=== PATIENT | female | born 1985 | race Caucasian/White ===

== ENCOUNTER 2018-05-14 14:48 | Emergency (ER) | payer MEDICAID, OTHER ==
[2018-05-14] MEDS ORDERED: BENZONATATE 100 MG CAPSULE PO STA (15:25)
[2018-05-14] MEDS ORDERED: IBUPROFEN 800 MG TABLET PO STA (15:25)
[2018-05-14] MEDS ORDERED: ALBUTEROL NEB 2.5 MG/3 ML INH STA (15:25)
--- NOTE | 2018-05-14 15:48 | ED Physician Documentation ---
PD HPI URI - Stated complaint Stated Complaint: COUGH/FEVER - Chief complaint Chief Complaint: Resp - History obtained from History obtained from: Patient - History of Present Illness Timing - onset: How many days ago (3) Timing duration: Days (3) Timing details: Gradual onset Pain level max: 4 Pain level now: 3 Associated symptoms: Fever, Chills, Nasal congestion, Rhinorrhea, Dry cough, Dyspnea Contributing factors: Sick contact, COPD / asthma (has used inhalers in the past). No: Immunocompromised, Unimmunized Improves by: Rest Worsened by: Activity, Breathing Similar symptoms before: Has not had sx before Recently seen: Not recently seen Review of Systems Constitutional: reports: Fever, Chills Nose: reports: Rhinorrhea / runny nose, Congestion Respiratory: reports: Dyspnea, Cough GI: denies: Vomiting, Diarrhea Skin: denies: Rash Musculoskeletal: denies: Neck pain, Back pain Neurologic: denies: Headache PD PAST MEDICAL HISTORY - Past Medical History Past Medical History: Yes Psych: Anxiety - Past Surgical History Past Surgical History: No /[employer]: section - Present Medications Home Medications: Ambulatory Orders Medication Instructions Recorded Confirmed Cyclobenzaprine [Flexeril] 10 mg PO TID PRN #20 tablet 11/24/12 12/10/14 Lorazepam [Ativan] 1 mg PO TID PRN #10 tablet 12/10/14 Albuterol Sulf [Ventolin Hfa 1 - 2 puffs INH Q4HR PRN #1 inhaler 05/14/18 Inhaler] Benzonatate [Tessalon Perle] 100 - 200 mg PO TID PRN #30 capsule 05/14/18 - Allergies Allergies/Adverse Reactions: Allergies Allergy/AdvReac Type Severity Reaction Status Date / Time latex Allergy Intermediate Rash Verified 05/14/18 14:54 - Social History Does the pt smoke?: No Smoking Status: Never smoker Does the pt drink ETOH?: No Does the pt have substance abuse?: No - Immunizations Immunizations are current?: Yes PD ED PE NORMAL - Vitals Vital signs reviewed: Yes - General General: Alert and oriented X 3 - HEENT HEENT: Ears normal, Moist mucous membranes, Pharynx benign - Neck Neck: Supple, no meningeal sign, No adenopathy - Cardiac Cardiac: RRR - Respiratory Respiratory: No respiratory distress, Other (wheezing, LLL) - Abdomen Abdomen: Soft, Non tender, Non distended - Derm Derm: Warm and dry - Neuro Neuro: Alert and oriented X 3 Results - Vitals Vitals: Vital Signs - 24 hr 05/14/18 05/14/18 14:53 15:46 Temperature 37.8 C H Heart Rate 122 H 110 H Respiratory 12 16 Rate Blood Pressure 138/75 H O2 Saturation 96 Oxygen O2 Source Room air - Labs Labs: Laboratory Tests 05/14/18 16:00 Influenza A (Rapid) Negative Influenza B (Rapid) Negative - Rads (name of study) cxr Radiology: Prelim report reviewed, EMP read contemporaneously, See rad report (no acute disease) PD MEDICAL DECISION MAKING - ED course Complexity details: reviewed results, re-evaluated patient, considered di fferential, d/w patient ED course: 33-year-old female with what appears to be a viral upper respiratory infection. Feels better after nebulizer treatment. Will prescribe an inhaler for home. Breathing is easier. Chest x-ray is negative. Influenza swab is negative. Patient counseled regarding signs and symptoms for which I believe and urgent re-evaluation would be necessary. Patient with good understanding of and agreement to plan and is comfortable going home at this time This document was made in part using voice recognition software. While efforts are made to proofread this document, sound alike and grammatical errors may occur. Departure - Departure Disposition: 01 Home, Self Care Clinical Impression: Viral URI with cough Condition: Good Instructions: ED Viral Syndrome Follow-Up: Hollie Welsh ARNP [Primary Care Provider] - Within 1 week Prescriptions: Albuterol Sulf [Ventolin Hfa Inhaler] 1 - 2 puffs INH Q4HR PRN #1 inhaler PRN Reason: Shortness Of Air/Wheezing Benzonatate [Tessalon Perle] 100 - 200 mg PO TID PRN #30 capsule PRN Reason: Cough Comments: Return if you worsen. Follow-up with your doctor for further care. Drink plenty of fluids and rest. Use the inhaler as needed. Forms: Activity restrictions
--- NOTE | 2018-05-14 15:53 | XRAY Report ---
Reason: cough Procedure Date: 05/14/2018 Accession Number: [id number] / [id number] Procedure: XR - Chest 2 View X-Ray CPT Code: 44541 FULL RESULT: EXAM: CHEST RADIOGRAPHY EXAM DATE: 05/14/2018 03:43 PM. CLINICAL HISTORY: Cough. COMPARISON: None. TECHNIQUE: 2 views. FINDINGS: Lungs/Pleura: No focal opacities evident. No pleural effusion. No pneumothorax. Normal volumes. Mediastinum: Heart and mediastinal contours are unremarkable. Other: Negative bony structures. An azygos lobe is present. IMPRESSION: Normal 2-view chest radiography. [facility]
[2018-05-14 16:32] VITALS: BP 118/78
== END 2018-05-14 16:31 | disposition home or self-care (01) ==
LOC: ED 14:48
DX: J06.9 Acute upper respiratory infection, unspecified (principal); B97.89 Other viral agents as the cause of diseases classified elsewhere
CPT/HCPCS: 71046; 87275; 87276; 94640; 94664; 99283; A9270

== ENCOUNTER 2020-01-10 07:00 | Outpatient (CLI) | payer MEDICAID | END 2020-01-10 23:59 | disposition home or self-care (01) | LOC: COV 07:00 | PROVIDERS: ATTEND Family Medicine | DX: R05 Cough (principal); R06.02 Shortness of breath; J02.9 Acute pharyngitis, unspecified; R09.81 Nasal congestion; Z20.828 Contact with and (suspected) exposure to other viral communicable diseases ==

== ENCOUNTER 2020-06-15 13:33 | Outpatient (CLI) | payer MEDICAID | END 2020-06-15 13:34 | disposition home or self-care (01) | LOC: COV 13:33 | PROVIDERS: ATTEND Family Medicine | DX: R50.9 Fever, unspecified (principal); R53.83 Other fatigue; Z20.822 Contact with and (suspected) exposure to COVID-19 ==